=== PATIENT | female | born 1995 | race Hispanic/Latino ===

== ENCOUNTER → 2020-11-10 | Outpatient (CLI) | payer OTHER | END | disposition home or self-care (01) | LOC: RAH 10:32 | PROVIDERS: ATTEND Family Medicine | DX: R05 Cough (principal); R94.2 Abnormal results of pulmonary function studies | CPT/HCPCS: 71046 ==

== ENCOUNTER → 2025-07-15 | Outpatient (CLI) | payer BC ==
--- NOTE | 2025-07-19 11:17 | HMCIMG ---
BILATERAL BREAST ULTRASOUND: CLINICAL HISTORY: Unspecified lump axillary tail COMPARISON: Prior study from 06/04/2022 is available. Finding: Real-time examination of the both breasts demonstrates heterogeneous echotexture throughout both the breasts without evidence of focal solid or cystic masses. In the left axillary region there is a fatty tissue possibly a lipoma. IMPRESSION: Dense breasts with no mass identified. FINAL ASSESSMENT: ACR: BI-RAD- 2. Benign Finding.
== END | disposition home or self-care (01) ==
LOC: RAH 15:11
PROVIDERS: ATTEND Internal Medicine
DX: R92.333 Mammographic heterogeneous density, bilateral breasts (principal); N63.31 Unspecified lump in axillary tail of the right breast; N63.32 Unspecified lump in axillary tail of the left breast